=== PATIENT | female | born 1985 | race Caucasian/White ===

== ENCOUNTER 2017-11-26 15:02 | Emergency (ER) | payer MEDICAID, OTHER ==
[~2017-11-26] VITALS: Ht 167.6 cm; Wt 51.3 kg
[2017-11-26] MEDS ORDERED: FAMOTIDINE 20MG/2ML VIAL IV ONE (21:00)
[2017-11-26] MEDS ORDERED: SODIUM CHLORIDE 0.9% 1,000 ML IV ONE (21:00)
[2017-11-26] MEDS ORDERED: ONDANSETRON HCL 4MG/2ML VIAL IV ONE (21:00)
[2017-11-26 21:09] LABS: BASOPHILS % 0.2 % (0.0-2.0); EOSINOPHILS % 0.3 % (0.0-5.0); HEMOGLOBIN. 14.9 g/dL (12.0-16.0); LYMPHOCYTES % 10.1 % (20.0-50.0); MEAN CORPUSCULAR HEMOGLOBIN 30.3 pg (28.0-32.0); MEAN CORPUSCULAR VOLUME 87.5 fL (81.0-99.0); MEAN PLATELET VOLUME 9.6 fl (7.4-10.4); MONOCYTES % 5.6 % (2.0-8.0); NEUTROPHILS % 83.8 % (40.0-76.0); PLATELET 133 x1000/uL (130-400); RED BLOOD CELL COUNT 4.91 mill/uL (4.2-5.4); RED CELL DISTRIBUTION WIDTH 13.5 % (11.6-14.6)
[2017-11-26 21:12] LABS: CHLORIDE 106 mEq/L (98-107)
[2017-11-26 22:51] LABS: CLARITY URINE CLOUDY (CLEAR); COLOR URINE YELLOW (YELLOW); KETONES URINE 2+ (NEGATIVE); LEUKOCYTE ESTERASE URINE NEGATIVE (NEGATIVE); NITRITE URINE NEGATIVE (NEGATIVE); OCCULT BLOOD URINE NEGATIVE (NEGATIVE); PROTEIN URINE NEGATIVE (NEGATIVE); SPECIFIC GRAVITY URINE 1.029 (1.005-1.030); UROBILINOGEN URINE 0.2 E.U./dL (0.2-1.0)
[2017-11-26 23:32] VITALS: BP 114/68
== END 2017-11-26 23:44 | disposition home or self-care (01) ==
LOC: ER 15:53
DX: R11.2 Nausea with vomiting, unspecified (principal); R19.7 Diarrhea, unspecified; J45.909 Unspecified asthma, uncomplicated; F12.10 Cannabis abuse, uncomplicated; Z90.49 Acquired absence of other specified parts of digestive tract
CPT/HCPCS: 36415; 80053; 81003; 85025; 96361; 96374; 96375; 99285; J2405; J3490; J7030; Z7610

== ENCOUNTER 2018-12-29 13:14 | Emergency (ER) | payer OTHER ==
[~2018-12-29] VITALS: Ht 167.6 cm; Wt 51.0 kg
[2018-12-29] MEDS ORDERED: SODIUM CHLORIDE 0.9% 1,000 ML IV ONE ×2 (14:30→16:00)
[2018-12-29] MEDS ORDERED: ONDANSETRON HCL 4MG/2ML INJ IV ONE (14:45)
[2018-12-29 14:48] LABS: BASOPHILS % 0.2 % (0.0-2.0); EOSINOPHILS % 0.1 % (0.0-5.0); HEMATOCRIT. 43.4 % (36.0-48.0); HEMOGLOBIN. 14.6 g/dL (12.0-16.0); LYMPHOCYTES % 7.8 % (20.0-50.0); MEAN CORPUSCULAR HEMOGLOBIN 30.3 pg (28.0-32.0); MEAN CORPUSCULAR VOLUME 89.8 fL (81.0-99.0); MEAN PLATELET VOLUME 9.7 fl (7.4-10.4); NEUTROPHILS % 86.9 % (40.0-76.0); PLATELET 142 x1000/uL (130-400); RED BLOOD CELL COUNT 4.84 mill/uL (4.2-5.4); RED CELL DISTRIBUTION WIDTH 13.4 % (11.6-14.6)
[2018-12-29 14:55] LABS: CHLORIDE 107 mEq/L (98-107)
[2018-12-29 15:07] LABS: PROTHROMBIN TIME 10.5 sec (9.1-11.1)
[2018-12-29 15:24] LABS: CLARITY URINE CLOUDY (CLEAR); COLOR URINE YELLOW (YELLOW); KETONES URINE 3+ (NEGATIVE); LEUKOCYTE ESTERASE URINE NEGATIVE (NEGATIVE); NITRITE URINE NEGATIVE (NEGATIVE); OCCULT BLOOD URINE NEGATIVE (NEGATIVE); PH URINE 5.5 (4.5-8.0); PROTEIN URINE NEGATIVE (NEGATIVE); UROBILINOGEN URINE 0.2 E.U./dL (0.2-1.0)
[2018-12-29] MEDS ORDERED: POTASSIUM CHLORIDE 20MEQ TABLET SR PO ONE (15:45)
[2018-12-29] MEDS ORDERED: KETOROLAC 15MG/ML VIAL IV ONE (16:00)
[2018-12-29 16:50] VITALS: BP 115/68
== END 2018-12-29 17:28 | disposition home or self-care (01) ==
LOC: ER 13:26
DX: K52.9 Noninfective gastroenteritis and colitis, unspecified (principal); E87.6 Hypokalemia; J45.909 Unspecified asthma, uncomplicated; Z90.49 Acquired absence of other specified parts of digestive tract
CPT/HCPCS: 36415; 80053; 81003; 81025; 83690; 85025; 85610; 96361; 96374; 96375; 99283; J1885; J2405; J7030

== ENCOUNTER 2019-01-01 15:05 | Emergency (ER) | payer OTHER ==
[~2019-01-01] VITALS: Ht 167.6 cm; Wt 50.0 kg
[2019-01-01] MEDS ORDERED: LOPERAMIDE 2 MG/10 ML UDC PO ONE (18:00)
[2019-01-01] MEDS ORDERED: SODIUM CHLORIDE 0.9% 100 ML IV ONE (18:00)
[2019-01-01 18:37] LABS: CLARITY URINE CLEAR (CLEAR); COLOR URINE YELLOW (YELLOW); KETONES URINE NEGATIVE (NEGATIVE); LEUKOCYTE ESTERASE URINE NEGATIVE (NEGATIVE); NITRITE URINE NEGATIVE (NEGATIVE); OCCULT BLOOD URINE NEGATIVE (NEGATIVE); PH URINE 5.5 (4.5-8.0); PROTEIN URINE NEGATIVE (NEGATIVE); SPECIFIC GRAVITY URINE 1.013 (1.005-1.030); UROBILINOGEN URINE 0.2 E.U./dL (0.2-1.0)
[2019-01-01 19:33] LABS: CHLORIDE 109 mEq/L (98-107)
[2019-01-01 21:13] VITALS: BP 110/89
== END 2019-01-01 21:13 | disposition home or self-care (01) ==
LOC: ER 15:05
DX: T62.8X1A Toxic effect of other specified noxious substances eaten as food, accidental (unintentional), initial encounter (principal); J45.909 Unspecified asthma, uncomplicated; R19.7 Diarrhea, unspecified; Y92.89 Other specified places as the place of occurrence of the external cause; Z90.49 Acquired absence of other specified parts of digestive tract
CPT/HCPCS: 36415; 80053; 81003; 96360; 99283; J7050

== ENCOUNTER 2019-11-06 05:37 | Emergency (ER) | payer SELFPAY ==
[~2019-11-06] VITALS: Ht 165.1 cm; Wt 53.0 kg
[2019-11-06] MEDS ORDERED: SODIUM CHLORIDE 0.9% 1,000 ML IV ONE (06:42)
[2019-11-06] MEDS ORDERED: ACETAMINOPHEN 325MG TABLET PO PRN (06:45)
[2019-11-06] MEDS ORDERED: ONDANSETRON HCL 4MG/2ML INJ IV ONE (06:45)
[2019-11-06 07:05] LABS: BASOPHILS % 0.5 % (0.0-2.0); EOSINOPHILS % 1.1 % (0.0-5.0); HEMATOCRIT. 39.3 % (36.0-48.0); HEMOGLOBIN. 13.9 g/dL (12.0-16.0); LYMPHOCYTES % 19.3 % (20.0-50.0); MEAN CORPUSCULAR HEMOGLOBIN 31.7 pg (28.0-32.0); MEAN CORPUSCULAR VOLUME 89.9 fL (81.0-99.0); MEAN PLATELET VOLUME 9.5 fl (7.4-10.4); MONOCYTES % 9.1 % (2.0-8.0); PLATELET 167 x1000/uL (130-400); RED BLOOD CELL COUNT 4.37 mill/uL (4.2-5.4); RED CELL DISTRIBUTION WIDTH 13.3 % (11.6-14.6)
[2019-11-06 07:15] LABS: CHLORIDE 106 mEq/L (98-107)
[2019-11-06 07:27] LABS: CLARITY URINE CLOUDY (CLEAR); COLOR URINE YELLOW (YELLOW); KETONES URINE TRACE (NEGATIVE); LEUKOCYTE ESTERASE URINE NEGATIVE (NEGATIVE); NITRITE URINE NEGATIVE (NEGATIVE); OCCULT BLOOD URINE NEGATIVE (NEGATIVE); PROTEIN URINE NEGATIVE (NEGATIVE); SPECIFIC GRAVITY URINE 1.029 (1.005-1.030); UROBILINOGEN URINE 0.2 E.U./dL (0.2-1.0)
[2019-11-06 07:38] LABS: B-HCG QUANTITATIVE 61047 mIU/mL (<3)
[2019-11-06 10:53] VITALS: BP 95/68
[2019-11-08 06:09] LABS: CHLAMYDIA TRACHOMATIS NAA Negative (Negative); NEISSERIA GONORRHOEAE NAA Negative (Negative)
== END 2019-11-06 10:57 | disposition home or self-care (01) ==
LOC: ER 05:37
DX: O23.31 Infections of other parts of urinary tract in pregnancy, first trimester (principal); O21.9 Vomiting of pregnancy, unspecified; Z3A.09 9 weeks gestation of pregnancy; E87.6 Hypokalemia; Z90.49 Acquired absence of other specified parts of digestive tract
CPT/HCPCS: 36415; 76801; 80053; 81003; 84702; 85025; 86850; 86900; 86901; 87210; 87491; 87591; 96361; 96374; 99284; J2405; J7030; Z7610

== ENCOUNTER 2020-01-15 07:33 | Observation (INO) | payer MEDICAID, OTHER ==
[~2020-01-15] VITALS: Ht 167.6 cm; Wt 54.4 kg
[2020-01-15] MEDS ORDERED: SODIUM CHLORIDE 0.9% 1,000 ML IV SCH (08:00)
[2020-01-15] MEDS ORDERED: ACETAMINOPHEN 500MG TABLET PO ONE (08:00)
[2020-01-15 08:39] LABS: CLARITY URINE CLOUDY (CLEAR); COLOR URINE YELLOW (YELLOW); KETONES URINE 2+ (NEGATIVE); LEUKOCYTE ESTERASE URINE 3+ (NEGATIVE); NITRITE URINE POSITIVE (NEGATIVE); OCCULT BLOOD URINE 3+ (NEGATIVE); PROTEIN URINE 2+ (NEGATIVE); SPECIFIC GRAVITY URINE 1.017 (1.005-1.030); UROBILINOGEN URINE 0.2 E.U./dL (0.2-1.0)
[2020-01-15] MEDS ORDERED: CEFAZOLIN 2,000 MG in DEXT 5% WATER 100 ML IV SCH (10:00)
[2020-03-10] MEDS ORDERED: FERR325T6 PO (01:29)
== END 2020-01-15 10:19 | disposition home or self-care (01) ==
LOC: 8 EST LDRP 07:33
PROVIDERS: ADMIT Specialist; ATTEND Specialist
DX: O26.892 Other specified pregnancy related conditions, second trimester (principal); R10.9 Unspecified abdominal pain; Z3A.20 20 weeks gestation of pregnancy
CPT/HCPCS: 81003; 87077; 87086; 87186; 96365; 99281; G0378; J0690; J7060; 96360; 96361

== ENCOUNTER 2020-01-19 04:45 | Observation (INO) | payer MEDICAID, OTHER ==
[~2020-01-19] VITALS: Ht 167.6 cm; Wt 54.4 kg
[2020-01-19] MEDS ORDERED: NITROFURANTOIN 100MG M/M CAPSULE PO SCH (06:08)
[2020-01-19] MEDS ORDERED: ACETAMINOPHEN 325MG TABLET PO NR (06:08)
[2020-01-19] MEDS ORDERED: LACTATED RINGERS 1,000 ML IV SCH (06:30)
[2020-01-19] MEDS ORDERED: PNV1TABL50 PO (06:49)
[2020-01-19] MEDS ORDERED: ACET-2708 MT (06:51)
[2020-01-19 06:55] LABS: BASOPHILS % 0.3 % (0.0-2.0); EOSINOPHILS % 1.1 % (0.0-5.0); HEMATOCRIT. 32.1 % (36.0-48.0); HEMOGLOBIN. 11.3 g/dL (12.0-16.0); LYMPHOCYTES % 19.4 % (20.0-50.0); MEAN CORPUSCULAR HEMOGLOBIN 31.5 pg (28.0-32.0); MEAN CORPUSCULAR VOLUME 89.4 fL (81.0-99.0); MEAN PLATELET VOLUME 9.2 fl (7.4-10.4); MONOCYTES % 8.4 % (2.0-8.0); NEUTROPHILS % 70.8 % (40.0-76.0); PLATELET 205 x1000/uL (130-400); RED BLOOD CELL COUNT 3.59 mill/uL (4.2-5.4); RED CELL DISTRIBUTION WIDTH 13.2 % (11.6-14.6)
[2020-01-19 07:12] LABS: CHLORIDE 107 mEq/L (98-107)
[2020-01-19 07:19] LABS: CLARITY URINE CLOUDY (CLEAR); COLOR URINE YELLOW (YELLOW); KETONES URINE NEGATIVE (NEGATIVE); LEUKOCYTE ESTERASE URINE 3+ (NEGATIVE); NITRITE URINE POSITIVE (NEGATIVE); OCCULT BLOOD URINE 1+ (NEGATIVE); PROTEIN URINE 2+ (NEGATIVE); SPECIFIC GRAVITY URINE 1.015 (1.005-1.030)
[2020-01-19] MEDS ORDERED: POTASSIUM CHLORIDE 20MEQ TABLET SR PO NR (08:00)
[2020-01-19] MEDS ORDERED: CEFAZOLIN 1000MG PREMIX 50 ML IV NR (08:00)
[2020-03-10] MEDS ORDERED: FERR325T6 PO (01:29)
== END 2020-01-19 09:20 | disposition home or self-care (01) ==
LOC: ER 04:45 → 8 EST LDRP 05:01
PROVIDERS: ADMIT Obstetrics & Gynecology; ATTEND Obstetrics & Gynecology
DX: O99.89 Other specified diseases and conditions complicating pregnancy, childbirth and the puerperium (principal); M54.9 Dorsalgia, unspecified; O26.892 Other specified pregnancy related conditions, second trimester; R19.7 Diarrhea, unspecified; R10.30 Lower abdominal pain, unspecified; Z3A.20 20 weeks gestation of pregnancy
CPT/HCPCS: 36415; 80053; 81003; 85025; 87077; 87086; 87186; 96365; 99281; G0378; J0690; 96360; 96361

== ENCOUNTER 2020-02-26 06:47 | Observation (INO) | payer MEDICAID ==
[~2020-02-26 06:47] MED LIST: ACET-2708 MT; PNV1TABL50 PO
== END 2020-02-26 07:45 | disposition home or self-care (01) ==
LOC: 8 EST LDRP 07:23
PROVIDERS: ADMIT Specialist; ATTEND Specialist
DX: O34.82 Maternal care for other abnormalities of pelvic organs, second trimester (principal); N94.89 Other specified conditions associated with female genital organs and menstrual cycle; Z3A.26 26 weeks gestation of pregnancy
CPT/HCPCS: 99281; G0378

== ENCOUNTER 2020-06-01 21:55 | Observation (INO) | payer MEDICAID ==
[~2020-06-01] VITALS: Ht 167.6 cm; Wt 65.3 kg
[~2020-06-01 21:55] MED LIST changes: +FERR325T6 PO
[2020-06-01] MEDS ORDERED: PNV1TABL50 PO (22:26)
[2020-06-01] MEDS ORDERED: FERR325T6 PO (22:26)
[2020-06-01] MEDS ORDERED: CALC-61 PO (22:26)
[2020-06-01] MEDS ORDERED: NITROFUR (23:00)
== END 2020-06-01 23:30 | disposition home or self-care (01) ==
LOC: 8 EST LDRP 21:55
PROVIDERS: ADMIT Obstetrics & Gynecology; ATTEND Obstetrics & Gynecology
DX: O36.8130 Decreased fetal movements, third trimester, not applicable or unspecified (principal); Z3A.39 39 weeks gestation of pregnancy
CPT/HCPCS: 59025; 76815; 76818; G0378; 99281

== ENCOUNTER 2020-09-03 10:08 | Emergency (ER) | payer MEDICAID ==
[~2020-09-03] VITALS: Ht 167.6 cm; Wt 54.0 kg
[~2020-09-03 10:08] MED LIST changes: -ACET-2708 MT; -PNV1TABL50 PO
[2020-09-03] MEDS ORDERED: ACETAMINOPHEN 325MG TABLET PO STA (10:33)
[2020-09-03] MEDS ORDERED: CEFTRIAXONE 1 G PREMIX 50 ML IV ONE (10:45)
[2020-09-03] MEDS ORDERED: SODIUM CHLORIDE 0.9% 1000ML BAG (SEPSIS BOLUS) IV ONE (10:45)
[2020-09-03 11:31] LABS: CLARITY URINE CLEAR (CLEAR); COLOR URINE YELLOW (YELLOW); KETONES URINE NEGATIVE (NEGATIVE); LEUKOCYTE ESTERASE URINE 1+ (NEGATIVE); NITRITE URINE POSITIVE (NEGATIVE); OCCULT BLOOD URINE 1+ (NEGATIVE); PH URINE 5.5 (4.5-8.0); PROTEIN URINE 1+ (NEGATIVE); SPECIFIC GRAVITY URINE 1.024 (1.005-1.030); UROBILINOGEN URINE 0.2 E.U./dL (0.2-1.0)
[2020-09-03 11:32] LABS: PROTHROMBIN TIME 10.6 sec (9.6-11.0)
[2020-09-03 11:33] LABS: BASOPHILS % 0.3 % (0.0-2.0); EOSINOPHILS % 0.1 % (0.0-5.0); HEMATOCRIT. 41.6 % (36.0-48.0); HEMOGLOBIN. 14.4 g/dL (12.0-16.0); LYMPHOCYTES % 13.2 % (20.0-50.0); MEAN CORPUSCULAR HEMOGLOBIN 30.7 pg (28.0-32.0); MEAN CORPUSCULAR VOLUME 88.7 fL (81.0-99.0); MEAN PLATELET VOLUME 9.7 fl (7.4-10.4); MONOCYTES % 7.9 % (2.0-8.0); NEUTROPHILS % 78.5 % (40.0-76.0); PLATELET 184 x1000/uL (130-400); RED BLOOD CELL COUNT 4.69 mill/uL (4.2-5.4); RED CELL DISTRIBUTION WIDTH 14.3 % (11.6-14.6)
[2020-09-03 11:39] LABS: CHLORIDE 103 mEq/L (98-107)
[2020-09-03 13:48] VITALS: BP 120/78
[2020-09-03 14:57] LABS: HCG SCREEN NEGATIVE
== END 2020-09-03 13:49 | disposition home or self-care (01) ==
LOC: ER 10:08 → CANBEDREQ 16:09
DX: N10 Acute pyelonephritis (principal); R50.9 Fever, unspecified
CPT/HCPCS: 36415; 71045; 74176; 80053; 81003; 81025; 83605; 84145; 84703; 85025; 85610; 87040; 87077; 87086; 87186; 93005; 96365; 96366; 99285; J0696; J7030; Z7610

== ENCOUNTER 2021-01-18 11:15 | Emergency (ER) | payer MEDICAID ==
[~2021-01-18] VITALS: Ht 167.6 cm; Wt 55.0 kg
[2021-01-18] MEDS ORDERED: PYRIDOXINE HCL 50MG TABLET PO ONE (12:00)
[2021-01-18] MEDS ORDERED: SODIUM CHLORIDE 0.9% 1,000 ML IV ONE ×2 (12:00→15:30)
[2021-01-18 12:59] LABS: HEMATOCRIT. 42.6 % (36.0-48.0); HEMOGLOBIN. 14.3 g/dL (12.0-16.0); MEAN CORPUSCULAR HEMOGLOBIN 29.7 pg (28.0-32.0); MEAN CORPUSCULAR VOLUME 88.4 fL (81.0-99.0); MEAN PLATELET VOLUME 9.3 fl (7.4-10.4); PLATELET 216 x1000/uL (130-400); RED BLOOD CELL COUNT 4.81 mill/uL (4.2-5.4); RED CELL DISTRIBUTION WIDTH 13.6 % (11.6-14.6)
[2021-01-18 13:06] LABS: CHLORIDE 108 mEq/L (98-107)
[2021-01-18 13:11] LABS: CLARITY URINE TURBID (CLEAR); COLOR URINE YELLOW (YELLOW); KETONES URINE 1+ (NEGATIVE); LEUKOCYTE ESTERASE URINE NEGATIVE (NEGATIVE); NITRITE URINE NEGATIVE (NEGATIVE); OCCULT BLOOD URINE NEGATIVE (NEGATIVE); PROTEIN URINE TRACE (NEGATIVE); SPECIFIC GRAVITY URINE 1.026 (1.005-1.030); UROBILINOGEN URINE 0.2 E.U./dL (0.2-1.0)
[2021-01-18] MEDS ORDERED: PROMETHAZINE HCL 25MG TABLET PO PRN (13:45)
[2021-01-18 14:32] LABS: PLATELET ESTIMATE NORMAL
[2021-01-18] MEDS ORDERED: ONDANSETRON HCL 4MG/2ML INJ IV ONE ×2 (15:30→18:30)
[2021-01-18] MEDS ORDERED: ONDA4TAB11 PO (18:20)
[2021-01-18 18:51] VITALS: BP 102/61
== END 2021-01-18 18:50 | disposition home or self-care (01) ==
LOC: ER 12:54
DX: O26.891 Other specified pregnancy related conditions, first trimester (principal); R10.13 Epigastric pain; R11.2 Nausea with vomiting, unspecified; Z3A.10 10 weeks gestation of pregnancy
CPT/HCPCS: 36415; 80053; 81003; 81025; 83690; 85025; 96361; 96374; 96376; 99285; J2405; J7030

== ENCOUNTER 2021-08-03 10:01 | Observation (INO) | payer MEDICAID ==
[~2021-08-03] VITALS: Ht 157.5 cm; Wt 61.2 kg
[~2021-08-03 10:01] MED LIST changes: +ONDA4TAB11 PO; +PNV1TAB.3 MT
== END 2021-08-03 12:00 | disposition home or self-care (01) ==
LOC: 8 EST LDRP 10:01
PROVIDERS: ADMIT Obstetrics & Gynecology; ATTEND Obstetrics & Gynecology
DX: O62.9 Abnormality of forces of labor, unspecified (principal); O26.893 Other specified pregnancy related conditions, third trimester; R10.9 Unspecified abdominal pain; Z3A.38 38 weeks gestation of pregnancy
CPT/HCPCS: 59025; G0378; 99281

== ENCOUNTER 2021-08-03 17:03 | Inpatient (IN) | payer MEDICAID ==
[~2021-08-03] VITALS: Ht 165.1 cm; Wt 61.2 kg
[2021-08-03] MEDS ORDERED: LACTATED RINGERS 1,000 ML IV SCH (17:15)
[2021-08-03] MEDS ORDERED: NALOXONE HCL 0.4 MG/ML 1ML VIAL IM PRN (17:15)
[2021-08-03] MEDS ORDERED: CARBOPROST TROMETHAMINE 250 MCG/ML AMPUL IM PRN (17:15)
[2021-08-03] MEDS ORDERED: BUTORPHANOL TARTRATE 2 MG/ML VIAL IV PRN (17:15)
[2021-08-03] MEDS ORDERED: MISOPROSTOL 100MCG TABLET VG SCH (17:15)
[2021-08-03] MEDS ORDERED: LIDOCAINE HCL 1% 20ML VIAL (Pyxis) INJ INFIL SCH (17:15)
[2021-08-03] MEDS ORDERED: METHYLERGONOVINE MALEATE 0.2 MG/ML IM PRN (17:15)
[2021-08-03] MEDS ORDERED: PENICILLIN G POTASSIUM 5 MMU in DEXT 5% WATER 100 ML IV SCH (17:15)
[2021-08-03] MEDS ORDERED: DEXT 5%/LR + PITOCIN 20UNITS/L 1,000 ML IV SCH ×2 (17:30→19:00)
[2021-08-03 17:54] LABS: BASOPHILS % 0.2 % (0.0-2.0); EOSINOPHILS % 0.5 % (0.0-5.0); HEMATOCRIT. 37.3 % (36.0-48.0); HEMOGLOBIN. 13.2 g/dL (12.0-16.0); LYMPHOCYTES % 22.9 % (20.0-50.0); MEAN CORPUSCULAR HEMOGLOBIN 31.8 pg (28.0-32.0); MEAN CORPUSCULAR VOLUME 89.8 fL (81.0-99.0); MEAN PLATELET VOLUME 9.7 fl (7.4-10.4); MONOCYTES % 7.5 % (2.0-8.0); NEUTROPHILS % 68.9 % (40.0-76.0); PLATELET 180 x1000/uL (130-400); RED BLOOD CELL COUNT 4.16 mill/uL (4.2-5.4); RED CELL DISTRIBUTION WIDTH 13.5 % (11.6-14.6)
[2021-08-03 18:01] LABS: CLARITY URINE CLEAR (CLEAR); COLOR URINE YELLOW (YELLOW); KETONES URINE 4+ (NEGATIVE); LEUKOCYTE ESTERASE URINE NEGATIVE (NEGATIVE); NITRITE URINE NEGATIVE (NEGATIVE); OCCULT BLOOD URINE NEGATIVE (NEGATIVE); PH URINE 6.5 (4.5-8.0); PROTEIN URINE TRACE (NEGATIVE); SPECIFIC GRAVITY URINE 1.019 (1.005-1.030)
[2021-08-03 18:07] LABS: INR 0.9; PARTIAL THROMBOPLASTIN TIME 25.7 sec (23.4-31.0); PROTHROMBIN TIME 9.6 sec (9.6-11.0)
[2021-08-03 18:14] LABS: *AMPHETAMINES SCREEN URINE NEGATIVE (NEGATIVE); *BARBITURATES SCREEN URINE NEGATIVE (NEGATIVE); *BENZODIAZEPINES SCREEN URINE NEGATIVE (NEGATIVE); *COCAINE SCREEN URINE NEGATIVE (NEGATIVE); METHADONE URINE SCREEN NEGATIVE (NEGATIVE); OPIATES URINE SCREEN NEGATIVE (NEGATIVE); PHENCYCLIDINE URINE SCREEN NEGATIVE (NEGATIVE)
[2021-08-03 18:28] LABS: HEPATITIS B SURFACE ANTIGEN NEGATIVE
[2021-08-03 18:30] LABS: CANNABINOID URINE SCREEN PRESUMTIVE POSITIVE (NEGATIVE)
[2021-08-03] MEDS ORDERED: GLYCERIN/WITCH HAZEL LEAF MEDICATED PAD TOP PRN (19:00)
[2021-08-03] MEDS ORDERED: ACETAMINOPHEN WITH CODEINE 300/30MG TABLET PO PRN (19:00)
[2021-08-03] MEDS ORDERED: DIPHENHYDRAMINE 25MG CAPSULE PO PRN (19:00)
[2021-08-03] MEDS ORDERED: IBUPROFEN 400MG TABLET PO PRN (19:00)
[2021-08-03] MEDS ORDERED: BENZOCAINE/LANOLIN/ALOE VERA SPRAY TOP PRN (19:00)
[2021-08-03] MEDS ORDERED: HEMORRHOIDAL SUPP PR PRN (19:00)
[2021-08-03] MEDS ORDERED: BISACODYL 10MG SUPP PR PRN (19:00)
[2021-08-03 20:40] VITALS: BP 119/51
[2021-08-03] MEDS: SIMETHICONE 80MG TABLET CHEW PO SCH (21:04)
[2021-08-03] MEDS: IBUPROFEN 800MG TABLET PO PRN (21:05)
[2021-08-03] MEDS: DOCUSATE SODIUM 100MG CAPSULE PO SCH (21:05)
[2021-08-03 21:10] VITALS: BP 110/63
[2021-08-03 21:40] VITALS: BP 108/57
[2021-08-03] MEDS ORDERED: PENICILLIN G POTASSIUM 2.5 MMU in DEXTROSE 5% WATER 50 ML IV SCH (22:00)
[2021-08-04] MEDS ORDERED: TETANUS, DIPHTHERIA, PERTUSSIS VAC/PF 0.5ML (>10YR OLD) IM ONE (03:00)
[2021-08-04 04:00] VITALS: BP 105/55
[2021-08-04 06:59] LABS: BASOPHILS % 0.1 % (0.0-2.0); EOSINOPHILS % 0.8 % (0.0-5.0); HEMATOCRIT. 30.8 % (36.0-48.0); HEMOGLOBIN. 10.8 g/dL (12.0-16.0); MEAN CORPUSCULAR VOLUME 90.8 fL (81.0-99.0); MEAN PLATELET VOLUME 9.3 fl (7.4-10.4); MONOCYTES % 9.2 % (2.0-8.0); NEUTROPHILS % 70.9 % (40.0-76.0); PLATELET 158 x1000/uL (130-400); RED BLOOD CELL COUNT 3.39 mill/uL (4.2-5.4); RED CELL DISTRIBUTION WIDTH 13.3 % (11.6-14.6)
[2021-08-04 08:36] VITALS: BP 104/48
[2021-08-04] MEDS: IBUPROFEN 800MG TABLET PO PRN ×2 (12:10→18:12)
[2021-08-04] MEDS: DOCUSATE SODIUM 100MG CAPSULE PO SCH ×2 (12:11→20:50)
[2021-08-04] MEDS: FERROUS SULFATE 325MG TABLET PO SCH (12:11)
[2021-08-04] MEDS: PRENATAL VIT/FE FUMARATE/FA TABLET PO SCH (12:12)
[2021-08-04 15:57] VITALS: BP 109/55
[2021-08-04 20:00] VITALS: BP 109/65
[2021-08-04] MEDS: SIMETHICONE 80MG TABLET CHEW PO SCH (20:50)
[2021-08-05 04:00] VITALS: BP 105/61
[2021-08-05 08:10] VITALS: BP 105/52
[2021-08-05] MEDS: PRENATAL VIT/FE FUMARATE/FA TABLET PO SCH (09:34)
[2021-08-05] MEDS: FERROUS SULFATE 325MG TABLET PO SCH (09:34)
[2021-08-05 09:35] VITALS: BP 105/52
[2021-08-05] MEDS: IBUPROFEN 800MG TABLET PO PRN (09:35)
[2021-08-13 13:11] LABS: CANNABINOID CONFIRMATION URINE Positive (.)
== END 2021-08-05 11:30 | disposition home or self-care (01) | DRG 560 ==
LOC: OBSVTOIN 17:03 → 8 EST LDRP 17:03 → 8EST 20:30
PROVIDERS: ADMIT Obstetrics & Gynecology; ATTEND Obstetrics & Gynecology
PROC: 10E0XZZ Delivery of Products of Conception, External Approach (ICD-10-PCS; principal; 2021-08-03)
PROC: 0W8NXZZ Division of Female Perineum, External Approach (ICD-10-PCS; 2021-08-03)
DX: O98.32 Other infections with a predominantly sexual mode of transmission complicating childbirth (principal); Z37.0 Single live birth; O99.324 Drug use complicating childbirth; O99.284 Endocrine, nutritional and metabolic diseases complicating childbirth; O99.824 Streptococcus B carrier state complicating childbirth; F14.10 Cocaine abuse, uncomplicated; A63.0 Anogenital (venereal) warts; E55.9 Vitamin D deficiency, unspecified; O69.81X0 Labor and delivery complicated by cord around neck, without compression, not applicable or unspecified; Z20.822 Contact with and (suspected) exposure to COVID-19; F12.10 Cannabis abuse, uncomplicated; Z3A.38 38 weeks gestation of pregnancy; Z79.899 Other long term (current) drug therapy
CPT/HCPCS: 36415; 80305; 80349; 81003; 85025; 86592; 86703; 86762; 86850; 86900; 87340; 87426; 90715; 99281; G0378; J0595; J2540; J2590; J3490; J7060

== ENCOUNTER 2021-10-20 18:32 | Emergency (ER) | payer MEDICAID ==
[~2021-10-20] VITALS: Ht 165.1 cm; Wt 66.0 kg
[2021-10-20 19:28] VITALS: BP 109/76
== END 2021-10-20 20:00 | disposition home or self-care (01) ==
LOC: ER 18:32
DX: J02.9 Acute pharyngitis, unspecified (principal); Z20.822 Contact with and (suspected) exposure to COVID-19
CPT/HCPCS: 87426; 99283

== ENCOUNTER 2023-03-19 07:01 | Inpatient (IN) | payer MEDICAID ==
[~2023-03-19] VITALS: Ht 167.6 cm; Wt 63.0 kg
[~2023-03-19 07:01] MED LIST changes: +LIDOCAINE 2%/EPINEPHRINE 1:200,000 20 ML VIAL INJ ONE
[2023-03-19] MEDS ORDERED: MISOPROSTOL 100MCG TABLET VG PRN (10:00)
[2023-03-19] MEDS ORDERED: LIDOCAINE HCL 1% 20ML VIAL (Pyxis) INJ INFIL SCH (10:00)
[2023-03-19] MEDS ORDERED: NALOXONE HCL 0.4 MG/ML 1ML VIAL IM PRN (10:00)
[2023-03-19] MEDS: LACTATED RINGERS 1,000 ML IV SCH ×3 (10:22→21:35)
[2023-03-19 11:34] LABS: CLARITY URINE CLOUDY (CLEAR); COLOR URINE YELLOW (YELLOW); KETONES URINE NEGATIVE (NEGATIVE); LEUKOCYTE ESTERASE URINE TRACE (NEGATIVE); NITRITE URINE NEGATIVE (NEGATIVE); OCCULT BLOOD URINE NEGATIVE (NEGATIVE); PH URINE 6.5 (4.5-8.0); PROTEIN URINE TRACE (NEGATIVE); SPECIFIC GRAVITY URINE 1.019 (1.005-1.030); UROBILINOGEN URINE 0.2 E.U./dL (0.2-1.0)
[2023-03-19 11:37] LABS: BASOPHILS % 0.3 % (0.0-2.0); EOSINOPHILS % 1.8 % (0.0-5.0); HEMATOCRIT. 34.5 % (36.0-48.0); LYMPHOCYTES % 21.7 % (20.0-50.0); MEAN CORPUSCULAR HEMOGLOBIN 31.9 pg (28.0-32.0); MEAN CORPUSCULAR VOLUME 91.8 fL (81.0-99.0); MEAN PLATELET VOLUME 9.9 fl (7.4-10.4); MONOCYTES % 9.8 % (2.0-8.0); NEUTROPHILS % 66.4 % (40.0-76.0); PLATELET 157 x1000/uL (130-400); RED BLOOD CELL COUNT 3.76 mill/uL (4.2-5.4)
[2023-03-19 11:43] LABS: INR 0.9; PARTIAL THROMBOPLASTIN TIME 27.4 sec (23.4-31.0); PROTHROMBIN TIME 9.5 sec (9.6-11.0)
[2023-03-19 12:02] LABS: *AMPHETAMINES SCREEN URINE NEGATIVE (NEGATIVE); *BARBITURATES SCREEN URINE NEGATIVE (NEGATIVE); *BENZODIAZEPINES SCREEN URINE NEGATIVE (NEGATIVE); *COCAINE SCREEN URINE NEGATIVE (NEGATIVE); CANNABINOID URINE SCREEN NEGATIVE (NEGATIVE); METHADONE URINE SCREEN NEGATIVE (NEGATIVE); OPIATES URINE SCREEN NEGATIVE (NEGATIVE); PHENCYCLIDINE URINE SCREEN NEGATIVE (NEGATIVE)
[2023-03-19 13:01] LABS: HEPATITIS B SURFACE ANTIGEN NEGATIVE
[2023-03-19] MEDS: OXYTOCIN 30 UNITS/500ML NS PMX 500 ML IV SCH (20:10)
[2023-03-19] MEDS ORDERED: ONDANSETRON HCL 4MG/2ML INJ IV PRN (20:45)
[2023-03-19] MEDS ORDERED: MEPERIDINE HCL/PF 50MG/ML CPJ IM PRN (20:45)
[2023-03-19] MEDS ORDERED: ROPIVACAINE HCL/PF EPIDURAL 200 ML EPI SCH (21:45)
[2023-03-19] MEDS ORDERED: ROPIVACAINE HCL/PF EPIDURAL 200 ML EPI ONE (21:47)
[2023-03-19] MEDS ORDERED: METHYLERGONOVINE MALEATE 0.2 MG/ML IM PRN (23:15)
[2023-03-19] MEDS ORDERED: BISACODYL 10MG SUPP PR PRN (23:15)
[2023-03-19] MEDS ORDERED: RHO(D) IMMUNE GLOBULIN 300 MCG/SYR IM PRN (23:15)
[2023-03-19] MEDS ORDERED: LANOLIN OINT 7GM TUBE TOP PRN (23:15)
[2023-03-19] MEDS ORDERED: OXYTOCIN 30 UNITS/500ML NS PMX 500 ML IV SCH (23:15)
[2023-03-19] MEDS ORDERED: HEMORRHOIDAL SUPP PR PRN (23:15)
[2023-03-19] MEDS ORDERED: DIPHENHYDRAMINE 25MG CAPSULE PO PRN (23:15)
[2023-03-19] MEDS ORDERED: IBUPROFEN 400MG TABLET PO PRN (23:15)
[2023-03-20] MEDS: OXYTOCIN 30 UNITS/500ML NS PMX 500 ML IV SCH (00:04)
[2023-03-20 00:45] VITALS: BP 99/55; PULSE 72; RESP 20; TEMP 98; O2SAT 97
[2023-03-20 04:00] VITALS: BP 112/57; PULSE 68; RESP 20; TEMP 99.4
[2023-03-20 07:16] LABS: BASOPHILS % 0.2 % (0.0-2.0); EOSINOPHILS % 0.3 % (0.0-5.0); HEMATOCRIT. 34.4 % (36.0-48.0); HEMOGLOBIN. 11.8 g/dL (12.0-16.0); LYMPHOCYTES % 10.7 % (20.0-50.0); MEAN CORPUSCULAR HEMOGLOBIN 31.1 pg (28.0-32.0); MEAN CORPUSCULAR VOLUME 90.9 fL (81.0-99.0); MEAN PLATELET VOLUME 9.2 fl (7.4-10.4); MONOCYTES % 8.5 % (2.0-8.0); NEUTROPHILS % 80.3 % (40.0-76.0); PLATELET 159 x1000/uL (130-400); RED BLOOD CELL COUNT 3.79 mill/uL (4.2-5.4); RED CELL DISTRIBUTION WIDTH 13.5 % (11.6-14.6)
[2023-03-20] MEDS: PRENATAL VIT/FE FUMARATE/FA TABLET PO SCH (11:40)
[2023-03-20] MEDS: IBUPROFEN 800MG TABLET PO PRN ×2 (11:40→20:57)
[2023-03-20 11:42] VITALS: BP 107/47; PULSE 65; RESP 20; TEMP 98.4
[2023-03-20 14:30] VITALS: BP 95/51; PULSE 78; RESP 20; TEMP 98.6
[2023-03-20 19:30] VITALS: BP 101/61; PULSE 80; RESP 18; TEMP 98.6; O2SAT 98
[2023-03-20] MEDS ORDERED: DOCUSATE SODIUM 100MG CAPSULE PO SCH (21:00)
[2023-03-21 04:00] VITALS: BP 95/58; PULSE 67; RESP 18; TEMP 98.8
[2023-03-21] MEDS: IBUPROFEN 800MG TABLET PO PRN (04:16)
[2023-03-21 07:30] VITALS: BP 110/55; PULSE 66; RESP 18; TEMP 97.6; O2SAT 98
[2023-03-21] MEDS: PRENATAL VIT/FE FUMARATE/FA TABLET PO SCH (08:12)
[2023-03-21] MEDS ORDERED: IBUP-2030 PO (09:01)
== END 2023-03-21 13:35 | disposition home or self-care (01) | DRG 560 ==
LOC: OBSVTOIN 07:01 → 8 EST LDRP 07:01 → 8EST 03-20 00:45
PROVIDERS: ADMIT Obstetrics & Gynecology; ATTEND Obstetrics & Gynecology
PROC: 10E0XZZ Delivery of Products of Conception, External Approach (ICD-10-PCS; principal; 2023-03-20)
PROC: 3E0R3BZ Introduction of Anesthetic Agent into Spinal Canal, Percutaneous Approach (ICD-10-PCS; 2023-03-20)
PROC: 00HU33Z Insertion of Infusion Device into Spinal Canal, Percutaneous Approach (ICD-10-PCS; 2023-03-20)
DX: O99.02 Anemia complicating childbirth (principal); Z37.0 Single live birth; E55.9 Vitamin D deficiency, unspecified; O99.284 Endocrine, nutritional and metabolic diseases complicating childbirth; Z3A.39 39 weeks gestation of pregnancy; F53.0 Postpartum depression
CPT/HCPCS: 36415; 76805; 76818; 80305; 81003; 85025; 86592; 86703; 86762; 86850; 86900; 87340; 99281; J2175; J2795; J3490; J7120; A4315; J2590

== ENCOUNTER 2024-06-19 20:57 | Emergency (ER) | payer SELFPAY ==
[~2024-06-19] VITALS: Ht 167.6 cm; Wt 65.0 kg
[~2024-06-19 20:57] MED LIST changes: +IBUP-2030 PO; -LIDOCAINE 2%/EPINEPHRINE 1:200,000 20 ML VIAL INJ ONE; -ONDA4TAB11 PO
[2024-06-19 21:09] VITALS: O2SAT 99
[2024-06-19 21:57] VITALS: BP 103/46; PULSE 78; TEMP 98.7; O2SAT 98
[2024-06-19 22:51] LABS: CLARITY URINE CLEAR (CLEAR); COLOR URINE YELLOW (YELLOW); GLUCOSE URINE NEGATIVE (NEGATIVE); KETONES URINE NEGATIVE (NEGATIVE); LEUKOCYTE ESTERASE URINE 1+ (NEGATIVE); NITRITE URINE NEGATIVE (NEGATIVE); OCCULT BLOOD URINE 2+ (NEGATIVE); PROTEIN URINE NEGATIVE (NEGATIVE); SPECIFIC GRAVITY URINE 1.026 (1.005-1.030); UROBILINOGEN URINE 0.2 E.U./dL (0.2-1.0)
[2024-06-19 23:13] LABS: BACTERIA URINE 1+; SQUAMOUS EPITHELIAL CELL URINE 1+ /lpf (RARE/1+)
[2024-06-19 23:14] LABS: BASOPHILS % 0.5 % (0.0-2.0); HEMATOCRIT. 39.7 % (36.0-48.0); HEMOGLOBIN. 13.2 g/dL (12.0-16.0); LYMPHOCYTES % 29.5 % (20.0-50.0); MEAN CORPUSCULAR HEMOGLOBIN 29.4 pg (28.0-32.0); MEAN CORPUSCULAR HGB CONC 33.4 g/dL (31.0-37.0); MEAN CORPUSCULAR VOLUME 88.2 fL (81.0-99.0); MEAN PLATELET VOLUME 9.8 fl (7.4-10.4); MONOCYTES % 6.7 % (2.0-8.0); NEUTROPHILS % 61.3 % (40.0-76.0); PLATELET 213 x1000/uL (130-400); RED CELL DISTRIBUTION WIDTH 14.3 % (11.6-14.6); WHITE BLOOD COUNT 9.3 x1000/uL (4.5-11.0)
[2024-06-19 23:20] LABS: CHLORIDE 107 mEq/L (98-107); POTASSIUM 3.8 mEq/L (3.5-5.1); SODIUM 137 mEq/L (136-145)
[2024-06-19 23:21] LABS: CARBON DIOXIDE 25 mEq/L (21-32)
[2024-06-19 23:22] LABS: CALCIUM 8.9 mg/dL (8.7-10.4)
[2024-06-19 23:26] LABS: CREATININE 0.6 mg/dL (0.6-1.0); GLUCOSE 86 mg/dL (70-105)
[2024-06-19 23:27] LABS: UREA NITROGEN BLOOD 13 mg/dL (9-23)
[2024-06-19 23:45] LABS: HCG SCREEN POSITIVE
[2024-06-20 01:18] LABS: ALANINE AMINOTRANSFERASE 10 IU/L (10-49); ALBUMIN 4.6 g/dL (3.2-4.8); ASPARTATE AMINOTRANSFERASE 17 IU/L (<34); BILIRUBIN TOTAL 0.2 mg/dL (0.1-1.0)
[2024-06-20 01:28] LABS: B-HCG QUANTITATIVE 74439 mIU/mL (<3); BILIRUBIN DIRECT < 0.1 mg/dL (<=3.0)
[2024-06-20] MEDS ORDERED: CEPH500C2 MT (02:36)
[2024-06-20 02:40] VITALS: RESP 19
== END 2024-06-20 02:39 | disposition home or self-care (01) ==
LOC: ER 21:09
DX: O20.0 Threatened abortion (principal); Z3A.08 8 weeks gestation of pregnancy
CPT/HCPCS: 36415; 76801; 80048; 80076; 81003; 81025; 84702; 84703; 85025; 86850; 86900; 99284